=== PATIENT | female | born 1975 | race Caucasian/White ===

== ENCOUNTER 2018-05-28 07:52 | Outpatient (CLI) | payer BC ==
--- NOTE | 2018-05-29 15:54 | MMO ---
BILATERAL SCREENING MAMMOGRAM: Date: 05/28/18 HISTORY: Screening. COMPARISON: Mammograms from 2017 and 2016. TECHNIQUE: Bilateral screening CC, MLO, and implant displaced mammograms performed. This patient's mammogram was interpreted with the assistance of computer-aided detection. FINDINGS: The breasts are heterogeneously dense, which may obscure small masses. There are bilateral breast imp lants. Benign calcifications right breast. IMPRESSION: BIRADS 2: Benign Finding(s) Continued annual mammographic screening is recommended. POS: [place]
== END 2018-05-28 07:53 | disposition home or self-care (01) ==
LOC: SCSMAMMO 07:52
PROVIDERS: ATTEND Obstetrics & Gynecology
DX: Z12.31 Encounter for screening mammogram for malignant neoplasm of breast (principal)
CPT/HCPCS: 77067

== ENCOUNTER 2019-01-07 01:45 | Outpatient (CLI) | payer BC ==
[2019-01-07 11:22] LABS: Mean Corpuscular HGB CONC 33.5 g/dL (32.0-36.0); Mean Corpuscular Hemoglobin 29.3 pg (27.0-31.0); Mean Corpuscular Volume 87.4 fL (78.0-98.0); Mean Platelet Volume 7.7 fL (7.4-10.4); Platelet Count 333 thou/uL (130-400); Red Blood Cell (RBC) Count 4.76 mill/uL (4.20-5.40); White Blood Cell (WBC) Count 11.7 thou/uL (4.8-10.8)
--- NOTE | 2019-01-08 15:55 | EKG ---
Test Reason : Blood Pressure : / mmHG Vent. Rate : 061 BPM Atrial Rate : 061 BPM P-R Int : 142 ms QRS Dur : 072 ms QT Int : 396 ms P-R-T Axes : 073 067 055 degrees QTc Int : 398 ms Normal sinus rhythm Possible Anterior infarct , age undetermined Abnormal ECG Confirmed by SARA TURNER ([id number]) on 01/08/2019 3:55:43 PM Referred By: DIONICIO Confirmed By:SARA TURNER
== END 2019-01-07 01:46 | disposition home or self-care (01) ==
LOC: LABBT 01:45
PROVIDERS: ATTEND Student in an Organized Health Care Education/Training Program
DX: Z01.818 Encounter for other preprocedural examination (principal); N93.9 Abnormal uterine and vaginal bleeding, unspecified; D25.9 Leiomyoma of uterus, unspecified
CPT/HCPCS: 85027; 93005; 93010

== ENCOUNTER 2019-01-11 09:07 | Outpatient (CLI) | payer BC | END 2019-01-11 09:08 | disposition home or self-care (01) | LOC: LABBT 09:07 | PROVIDERS: ATTEND Student in an Organized Health Care Education/Training Program | DX: Z01.812 Encounter for preprocedural laboratory examination (principal); D21.9 Benign neoplasm of connective and other soft tissue, unspecified; N93.9 Abnormal uterine and vaginal bleeding, unspecified | CPT/HCPCS: 86850; 86900; 86901 ==

== ENCOUNTER 2019-01-15 07:57 | Day surgery (SDC) | payer BC ==
[2019-01-07 10:20] VITALS: BMI 24.0
[2019-01-15] MEDS ORDERED: Ondansetron HCl/PF 4 MG/2 ML Vial IVP PRN (08:17)
[2019-01-15] MEDS ORDERED: Promethazine HCl 25 MG/ML VIAL IM PRN (08:17)
[2019-01-15] MEDS ORDERED: Meperidine HCl/PF 25 MG/ML VIAL SLOW IVP PRN (08:17)
[2019-01-15] MEDS ORDERED: Promethazine HCl 25 MG/ML VIAL SLOW IVP PRN (08:17)
[2019-01-15] MEDS ORDERED: Gabapentin 300 MG CAP ONE (08:35)
[2019-01-15] MEDS ORDERED: ceFAZolin Sodium 2 GM/100 ML BAG ONE (08:35)
[2019-01-15] MEDS ORDERED: CeleCOXIB 100 MG CAP ONE (08:35)
[2019-01-15] MEDS ORDERED: Famotidine/PF 20 mg/2ml Vial ONE (08:35)
[2019-01-15] MEDS ORDERED: Bupivacaine HCl 0.5%/Epinephrine 1:200,000/PF 30 ml Vial ONE (09:11)
[2019-01-15] MEDS ORDERED: Scopolamine 1.5 mg/72 hour Patch ONE (09:12)
[2019-01-15] MEDS ORDERED: Midazolam HCl 2 mg/2 ml Vial ONE (09:12)
[2019-01-15] MEDS ORDERED: Fentanyl 250 MCG/5 ML VIAL ONE (10:36)
[2019-01-15] MEDS ORDERED: Meperidine HCl/PF 25 MG/ML VIAL ONE (12:34)
[2019-01-15] MEDS ORDERED: Ondansetron PF 4 MG/2 ML Vial ONE (14:00)
[2019-01-15] MEDS ORDERED: Lidocaine 1% PF 5 ML VIAL ONE (14:00)
[2019-01-15] MEDS ORDERED: PROPOFOL 200 MG/20 ML VIAL ONE (14:00)
[2019-01-15] MEDS ORDERED: Rocuronium Bromide 10 MG/ML (10ML VIAL) ONE (14:00)
[2019-01-15] MEDS ORDERED: Dexamethasone 20 MG/5 ML VIAL ONE (14:00)
[2019-01-15] MEDS ORDERED: Glycopyrrolate 0.2 MG/ML 5 ML SYRINGE ONE (14:00)
[2019-01-15] MEDS ORDERED: Metoclopramide HCl 10 MG/2 ML VIAL ONE (14:00)
[2019-01-15] MEDS ORDERED: HYDROcodone/Acetaminophen 5/325 mg Tablet ONE ×2 (14:25→19:09)
[2019-01-15] MEDS ORDERED: Morphine 2 MG/ML SYRINGE ONE (14:50)
[2019-01-15] MEDS ORDERED: Ondansetron ODT 4 MG TAB ONE (19:37)
--- NOTE | 2019-01-16 11:15 | OP ---
DATE OF PROCEDURE: 01/15/2019 PREOPERATIVE DIAGNOSES: 1. Uterine fibroids. 2. Menorrhagia. POSTOPERATIVE DIAGNOSES: 1. Uterine fibroids. 2. Menorrhagia. PROCEDURES: Robotic-assisted total laparoscopic hysterectomy and bilateral salpingectomy. ANESTHESIA: General endotracheal. OPERATING ROOM SCHEDULER SURGEONS: 1. Dr. Mounika Graham. 2. KATY Arrieta. ESTIMATED BLOOD LOSS: 20 mL. IVF: 500 mL of crystalloid. URINE OUTPUT: 150 mL of clear urine. COMPLICATIONS: None. DRAINS: Curtis catheter. PATHOLOGY: Uterus, cervix, and bilateral fallopian tubes. FINDINGS: On exam under anesthesia, a small, mobile uterus sounded to 8 cm. On intraabdominal survey, the uterus was normal appearing. Posterior fibroid was present. The fallopian tubes and ovaries were normal bilaterally. No other significant intra-abdominal findings. OPERATIVE TECHNIQUE: The patient was taken to the operating room, where general anesthesia was obtained without difficulty. The patient was prepped and draped in a sterile fashion in a dorsal lithotomy position. Curtis catheter was placed in the bladder. A speculum was placed in the vagina. The anterior lip of the cervix was grasped with a single-tooth tenaculum. The uterus then sounded to 8 cm and the cervix was progressively dilated with Vignesh dilators. A CATHI manipulator was assembled with a 4-cm ring and an 8-cm tip. The tip was inserted to the uterine fundus and the ring was advanced, fit snugly around the cervix, and instruments were removed out of the vagina. Legs were placed in low lithotomy. Attention was turned to the abdomen. A 0.5% Marcaine was infiltrated into the umbilicus. A 12-mm skin incision was made and a Veress needle was passed to the abdomen, noting an opening pressure of 0 mmHg. Pneumoperitoneum was obtained without difficulty. Veress needle was removed and a 12-mm trocar was then advanced into the abdomen and confirmed placement with the camera. Steep Trendelenburg was obtained. The right and left lower robotic 8-mm trocars were then placed under direct visualization after infiltrating with anesthetic of 0.5% Marcaine with epi. A right upper quadrant 11-mm senior care assistant port was also placed under direct visualization after infiltrating with 0.5% Marcaine with epi. The robot was then docked. The right robotic arm contained monopolar scissors. Left robotic arm contained a fenestrated bipolar. The surgeon console took control. The right fallopian tube was grasped and elevated. The mesosalpinx was cauterized and transected with the scissors. The fallopian tube was removed out of the abdomen. The utero-ovarian was cauterized x2 with the bipolar and incised in the middle and the meso-ovarium was transected and cauterized as well down to the round ligament, that was clamped and cauterized in the midportion and transected with the scissors. The posterior leaf of the broad ligament was dropped down to the level of the uterosacral ligament. The retroperitoneum was dissected off the uterine pedicles. The anterior leaf of the broad ligament was dropped down to the level of the bladder flap and the uterine vessels were skeletonized adequately to allow the ureter to drop laterally. The ureter was visible during this time and well away. The bladder flap was then created by incising the vesicouterine peritoneum and dissecting the adventitial fibers with blunt dissection, pushing and spreading, as well as incising these fibers over the pubocervical fascia. This was taken down well below the level of the colpotomizer ring. Attention was turned to the left side, where the left fallopian tube was grasped and elevated. The mesosalpinx was cauterized with the bipolar and transected with the scissors and removed out of the abdomen. The utero-ovarian was cauterized with the bipolar and transected in the midportion with the scissors and sequentially clamped, cauterized in the midportion and transected, allowing the retroperitoneum to be exposed. The posterior leaf of the broad ligament was dropped down to the level of the uterosacral ligament with scissors, undermining with the fenestrated, and the retroperitoneum was dissected off the uterine pedicle bluntly as well as incising with the scissors. The anterior leaf of the broad ligament was dropped down to the level of the contralateral side incision and that pedicle was adequately skeletonized and the uterine vessels were then clamped and cauterized several times at the level of the internal cervical os. The right-sided uterine vessels were also clamped at the level of the internal cervical os with the bipolar and cauterized several times. These were then transected and then cauterized once again followed by transection and dissection of the uterine pedicle laterally off the vaginal cuff apex and hemostasis was noted. The same was performed on the left side, where the vessels were incised and then cauterized and the pedicle was then incised over the cardinal ligament to allow to fall laterally off the vaginal apex. The colpotomy was then performed completely around the colpotomizer ring and the uterus was then placed into the vagina. Hemostasis was achieved of the vaginal cuff with the bipolar. Scissors were traded out for the needle otr company driver. Irrigation was performed in the vaginal cuff. Vaginal cuff was then closed in a running fashion with a 2-0 STRATAFIX and then run back for several sutures. Closure and hemostasis were noted to be excellent. At that time, copious irrigation of the pelvis was performed. The needle was removed out of the abdomen after closure was complete, and low pressure check was performed and hemostasis was noted to be excellent. All instruments were then removed out of the abdomen and the robot was undocked. The umbilical fascia was closed with a 0 Vicryl in a [id number] fashion. The skin was closed with 4-0 Monocryl in a subcuticular fashion. Dermabond was applied. Everything was removed out of the vagina. Vaginal cuff was checked and noted to be hemostatic. All instruments were removed out of the vagina. The patient tolerated the procedure well. Sponge, lap, and needle counts correct x2. The patient was taken to recovery room in stable condition. The patient received Ancef 2 g prior to the procedure. Job ID: [id number]
== END 2019-01-15 19:44 | disposition home or self-care (01) ==
LOC: SDC 07:57 → EDSTATUS 10:00 → SDC 19:44
PROVIDERS: ATTEND Student in an Organized Health Care Education/Training Program
PROC: 0UT74ZZ Resection of Bilateral Fallopian Tubes, Percutaneous Endoscopic Approach (ICD-10-PCS; principal; 2019-01-15)
PROC: 0UT94ZZ Resection of Uterus, Percutaneous Endoscopic Approach (ICD-10-PCS; principal; 2019-01-15)
DX: D25.9 Leiomyoma of uterus, unspecified (principal); N92.0 Excessive and frequent menstruation with regular cycle; Z88.2 Allergy status to sulfonamides
CPT/HCPCS: 51798; 88307; J0131; J0670; J0690; J1100; J2001; J2175; J2250; J2270; J2405; J2704; J2765; J3010; Q0162; S0028

== ENCOUNTER 2019-06-03 10:08 | Outpatient (CLI) | payer BC ==
--- NOTE | 2019-06-03 12:47 | MMO ---
Bilateral MAMMO Bilat Screen DDI. CLINICAL HISTORY: Patient is 44 years old and is seen for screening. The patient has the following family history of breast cancer: mother, at age 65. The patient has no personal history of cancer. The patient has a history of bilateral Implants in 2009. There are bilateral retro-pectoral silicone gel implants VIEWS: The views performed were: bilateral craniocaudal; bilateral mediolateral oblique; and bilateral Implant displaced. FILMS COMPARED: The present examination has been compared to prior imaging studies performed at [facility] on 05/28/2018, and at [facility] on 08/03/2010, 05/16/2016 and 05/18/2017. This study has been interpreted with the assistance of computer-aided detection. MAMMOGRAM FINDINGS: The breasts are heterogeneously dense, which could obscure a lesion on mammography. There are benign appearing calcifications seen in the right breast. There are no suspicious masses, suspicious calcifications, or new areas of architectural distortion. IMPRESSION: THERE IS NO MAMMOGRAPHIC EVIDENCE OF MALIGNANCY. A ROUTINE FOLLOW-UP MAMMOGRAM IN 1 YEAR IS RECOMMENDED. ACR BI-RADS Category 2 - Benign finding MAMMOGRAPHY NOTE: 1. A negative mammogram report should not delay a biopsy if a dominant of clinically suspicious mass is present. 2. Approximately 10% to 15% of breast cancers are not detected by mammography. 3. Adenosis and dense breasts may obscure an underlying neoplasm. Reported by: LES POLLOCK MD Electonically Signed: [id number]
== END 2019-06-03 10:09 | disposition home or self-care (01) ==
LOC: SCSMAMMO 10:08
PROVIDERS: ATTEND Obstetrics & Gynecology
DX: Z12.31 Encounter for screening mammogram for malignant neoplasm of breast (principal); Z80.3 Family history of malignant neoplasm of breast
CPT/HCPCS: 77067

== ENCOUNTER 2025-08-21 10:39 | Outpatient (CLI) | payer BC | END 2025-08-21 10:40 | disposition home or self-care (01) | LOC: BICRAD 10:39 | PROVIDERS: ATTEND Family Medicine | DX: R06.02 Shortness of breath (principal) | CPT/HCPCS: 71046 ==